=== PATIENT | female | born 1985 | race Asian ===

== ENCOUNTER 2023-12-16 16:15 | Inpatient (IN) ==
[2023-12-16] MEDS ORDERED: Nalbuphine 10 MG/ML 1 ML VIAL IV PRN (16:27)
[2023-12-16] MEDS ORDERED: Prochlorperazine 5 mg/ml 2 ml VIAL (10 mg) IV PRN (16:27)
[2023-12-16] MEDS ORDERED: Lidocaine 1% VIAL 10 MG/ML 30 ML VIAL INJ PRN (16:27)
[2023-12-16 16:41] LABS: ABS Basophils 0.1 10^3/uL (0.0-0.1); ABS Lymphocytes 2.2 10^3/uL (1.0-4.8); ABS Neutrophils 13.9 10^3/uL (1.5-7.6); Hematocrit 38.2 % (35-45); Hemoglobin 13.1 g/dL (11.5-14.3); Lymphocyte % 12.6 %; Mean Corpuscular Hemoglobin 30.7 pg (27-33); Mean Corpuscular Hgb Conc 34.4 g/dL (31-36); Mean Corpuscular Volume 89.3 fL (80-97); Mean Platelet Volume 10.7 fL (7.5-11.2); Platelet Count 297 10^3/uL (150-450); Red Blood Count 4.27 10^6/uL (3.63-4.92); Red Cell Distribution Width 13.1 % (12-17); White Blood Count 17.2 10^3/uL (3.8-11.8)
[2023-12-16] MEDS: Penicillin G Potassium IV 5,000,000 UNITS in NS 0.9% 100 ml BAG 100 ML IVPB ONE (16:55)
[2023-12-16] MEDS ORDERED: Phenylephrine 40 mcg/mL 10mL (400mcg) SYRINGE IV PUSH PRN ×2 (17:30)
[2023-12-16] MEDS ORDERED: Sodium Citrate/Citric Acid LIQ 15 ML UDC PO PRN (17:30)
[2023-12-16] MEDS ORDERED: Lidocaine 2% PF 10 ML AMP (OR) ONE ×2 (18:26)
[2023-12-16] MEDS: Lactated Ringers 1000 ml BAG 1,000 ML IV ONE ×2 (18:31→20:25)
[2023-12-16] MEDS: OBEPIDURAL (200 ML) 200 ML EPIDURAL SCH (18:31)
[2023-12-16] MEDS: Lactated Ringers 1000 ml BAG 1,000 ML IV SCH ×2 (18:32→20:26)
[2023-12-16] MEDS ORDERED: Dexamethasone IV 4 MG/ML VIAL 1 ml VIAL ONE (18:50)
[2023-12-16] MEDS ORDERED: Ondansetron 4 mg VIAL 2 MG/ML 2 ml VIAL ONE (18:50)
[2023-12-16 18:55] LABS: Urine Appearance Clear; Urine Bilirubin Negative (Negative); Urine Blood Negative (Negative); Urine Color Yellow; Urine Glucose 1+ (>=70 mg/dL) (Negative); Urine Ketones Negative (Negative); Urine Nitrite Negative (Negative); Urine Protein Trace (Negative); Urine Specific Gravity 1.023 (1.002-1.030); Urine Urobilinogen Negative (Negative)
[2023-12-16] MEDS: Azithromycin 500 mg/250 ml NS 500 MG/250 ML BAG IVPB ONE (19:00)
[2023-12-16] MEDS: ceFOXitin 2 GM IVPREMIX 2 GM/50 ML BAG IVPB ONE (19:00)
[2023-12-16] MEDS ORDERED: Oxytocin 10 UNITS/ML 1 ML VIAL ONE (19:04)
[2023-12-16 19:10] LABS: Urine Benzodiazepine Screen None Detected (None Detect); Urine Cannabinoids Screen None Detected (None Detect); Urine Opiates Screen None Detected (None Detect)
[2023-12-16] MEDS ORDERED: Morphine PF AMP (0.5MG/ML) 5 MG/10 ML AMP ONE (19:11)
[2023-12-16] MEDS ORDERED: Tranexamic Acid 1 GM/100ML BAG 0 MG/0 ML BAG IV ONE (19:14)
[2023-12-16] MEDS ORDERED: Dibucaine 1% OINT 28.35 GM TUBE PR PRN (20:14)
[2023-12-16] MEDS ORDERED: Witch Hazel PAD JAR TOPICAL PRN (20:14)
[2023-12-16] MEDS: Buffered Lidocaine 1% SYRIN 1 ml INTRADERM ONE (20:21)
[2023-12-16] MEDS: Lidocaine 1.5% EPI 1:200,000 30 ML SDV ONE (20:21)
[2023-12-16] MEDS: Methylergonovine 0.2 mg AMPULE 1 ml AMP ONE (20:21)
[2023-12-16] MEDS: Penicillin G Potassium IV 3,000,000 UNITS in NS 0.9% 100 ml BAG 100 ML IVPB SCH (20:27)
[2023-12-16] MEDS: OBEPIDURAL (200 ML) 200 ML EPIDURAL ONE (20:31)
[2023-12-16] MEDS ORDERED: Metoclopramide 5 MG/ML VIAL (10 mg) IV PRN (20:54)
[2023-12-16] MEDS ORDERED: Ondansetron 4 mg VIAL 2 MG/ML 2 ml VIAL IV PRN (20:54)
[2023-12-16] MEDS ORDERED: Acetaminophen IV 1 GM/100ML 1,000 MG/100 ML BAG IV PRN (20:54)
[2023-12-16] MEDS ORDERED: Naloxone 0.4 mg VIAL 0.4 mg/ml 1 ml VIAL IV PUSH PRN (20:54)
[2023-12-16] MEDS ORDERED: Lactated Ringers 1000 ml BAG 1,000 ML IV SCH (21:00)
[2023-12-16] MEDS: Oxytocin in LR 20,000 MILLI.UNIT/1,000 ML BAG IV SCH (21:18)
[2023-12-16] MEDS: Methylergonovine 0.2 mg AMPULE 1 ml AMP IM ONE (21:18)
[2023-12-17 08:46] LABS: ABS Basophils 0.1 10^3/uL (0.0-0.1); ABS Lymphocytes 2.7 10^3/uL (1.0-4.8); ABS Monocytes 1.1 10^3/uL (0.0-0.9); Eosinophil % 0.1 %; Hematocrit 31.1 % (35-45); Hemoglobin 10.9 g/dL (11.5-14.3); Lymphocyte % 17.1 %; Mean Corpuscular Hemoglobin 31.4 pg (27-33); Mean Corpuscular Volume 89.7 fL (80-97); Mean Platelet Volume 10.2 fL (7.5-11.2); Platelet Count 221 10^3/uL (150-450); Red Blood Count 3.47 10^6/uL (3.63-4.92); Red Cell Distribution Width 13.3 % (12-17)
[2023-12-19] MEDS: Glycerin ADULT 2.4 gm SUPP PR PRN (15:26)
[2023-12-20 07:55] VITALS: BP 120/77
== END 2023-12-20 15:34 | disposition home or self-care (01) | DRG 540 ==
LOC: MCHOBOUT 16:15 → MCHOB 16:21
PROVIDERS: ADMIT Obstetrics & Gynecology; ATTEND Obstetrics & Gynecology